=== PATIENT | male | born 1990 | race Caucasian/White ===

== ENCOUNTER 2019-01-20 11:29 | Emergency (ER) | payer OTHER ==
[2019-01-20] MEDS ORDERED: Diphtheria,Pertussis(Acell),Tetanus Vaccine 0.5 ML Syringe IM ONE (11:32)
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
== END 2019-01-20 13:25 | disposition home or self-care (01) ==
LOC: MW.ED 11:29
DX: S01.01XA Laceration without foreign body of scalp, initial encounter (principal); Z88.0 Allergy status to penicillin; Z23 Encounter for immunization; V29.49XA Motorcycle driver injured in collision with other motor vehicles in traffic accident, initial encounter
CPT/HCPCS: 12002; 70450; 70450-26; 71045; 71045-26; 72100; 72100-26; 72125; 72125-26; 72170; 72170-26; 90471; 90715; 99284; 99284-25

== ENCOUNTER 2019-01-30 14:44 | Emergency (ER) | payer SELFPAY | END 2019-01-30 15:08 | disposition left against medical advice (07) | LOC: MW.ED 14:44 | DX: Z53.21 Procedure and treatment not carried out due to patient leaving prior to being seen by health care provider (principal) ==